=== PATIENT | male | born 1955 | race Caucasian/White ===

== ENCOUNTER → 2020-05-29 08:55 | Outpatient (CLI) | payer OTHER, SELFPAY ==
--- NOTE | 2020-05-29 08:58 | CDU_ITS ---
Reason For Study: VISUAL DISTURBANCE Rt. Velocities/BP Lt. Velocities/BP Prox CCA 106.0/18.6 cm/sec. Prox CCA 128.9/34.0 cm/sec. Mid CCA 96.9/23.9 cm/sec. Mid CCA 101.6/19.4 cm/sec. Dist CCA 79.9/21.3 cm/sec. Dist CCA 92.4/21.2 cm/sec. Prox ICA 111.2/25.2 cm/sec. Prox ICA 79.7/24.4 cm/sec. Mid ICA 83.8/26.5 cm/sec. Mid ICA 104.8/32.3 cm/sec. Dist ICA 76.4/28.9 cm/sec. Dist ICA 45.6/18.6 cm/sec. Rt. ICA/CCA = 111.2/106.0=1.0. Lt. ICA/CCA = 104.8/128.9=0.8. Prox ECA 96.9/14.7 cm/sec. Prox ECA 107.0/21.2 cm/sec. Rt. Vert. 43.1/11.0 cm/sec. Lt. Vert. 35.5/13.8 cm/sec. Right Extracranial There is intimal thickening but no significant atherosclerotic plaque noted in the right common carotid artery. There is homogeneous, smooth atherosclerotic plaque noted in the right internal carotid artery. The distal right internal carotid artery is not well visualized. The right internal carotid artery is very tortuous. There is no significant atherosclerotic plaque noted in the right external carotid artery. Antegrade flow is noted in the right vertebral artery. Left Extracranial There is homogeneous, smooth atherosclerotic plaque noted in the left common carotid artery. There is homogeneous, smooth atherosclerotic plaque noted in the left internal carotid artery. The distal left internal carotid artery is not well visualized. The left internal carotid artery is very tortuous. There is no significant atherosclerotic plaque noted in the left external carotid artery. Antegrade flow is noted in the left vertebral artery. Procedure Carotid Duplex [id number]. Exam performed in department. Interpretation Summary Mild (<50%) stenosis right extracranial internal carotid. Mild (<50%) stenosis left extracranial internal carotid. Flow within the vertebral arteries is antegrade bilaterally. Ordering Physician: Leoncio Peters Referring Physician: Jose Palomares Performed By: Maria Isabel Tavares, NATALIE, RVT
== END ==
PROVIDERS: PCP Family Medicine; Referring Provider Ophthalmology; Visit Provider Ophthalmology
DX: H53.10 Unspecified subjective visual disturbances (principal)
CPT/HCPCS: 93880